=== PATIENT | female | born 1950 | race Two or more races ===

== ENCOUNTER → 2019-12-07 | Outpatient (CLI) | payer MEDICARE, OTHER | END | disposition home or self-care (01) | LOC: RADPV 12:57 | PROVIDERS: ATTEND Nurse Practitioner | DX: M85.89 Other specified disorders of bone density and structure, multiple sites (principal); M81.8 Other osteoporosis without current pathological fracture; L60.3 Nail dystrophy; Z95.0 Presence of cardiac pacemaker | CPT/HCPCS: 77080 ==